=== PATIENT | male | born 1950 | race Caucasian/White ===

== ENCOUNTER → 2016-12-06 | Outpatient (CLI) | payer BC ==
[~2016-12-06] MED LIST: AMT100 PO; CHOL1TAB42 PO; CITA20TA9 PO; DILT360C23 PO; FENT25DI10 TD; HUMAN GROWTH HORMONE PO; OPTIRAY 320 IV PRN; OXYC1TAB3 PO; POLY335019 PO; PRLSR20 PO; SUMA100T16 PO; TEST5GEL TOP; TRIA37.5 PO; TYLOTC500 PO; ZCR40 PO; [UNRECOGNIZED DRUG - CODE] PO
--- NOTE | 2016-12-06 11:40 | DIAGNOSTIC IMAGING REPORT ---
CT SCAN OF THE BRAIN COMBO CLINICAL HISTORY: Chronic headache. Empty sella syndrome. COMPARISON STUDY: CT of the brain dated 06/18/2013. TECHNIQUE: Axial CT scan of the brain is performed from the vertex to the skull base before and following the IV administration of 93 cc of Optiray 320. Images reviewed in the axial, sagittal, an coronal planes. IV contrast was administered without complication. Automated dose control exposure was utilized. CT DOSE: 1375.95 mGy.cm FINDINGS: Brain parenchyma: The brain parenchyma is normal in appearance. There is no hemorrhage, mass effect, or evidence of acute territorial ischemia by CT criteria. Chandler-white matter is preserved. No enhancing mass lesion is suggested on the postcontrast images. There is CSF density noted within the sella turcica suggesting partially of the sella. No extra-axial fluid collection is seen. Ventricles, sulci, cisterns: Normal in configuration. Intracranial vasculature: The visualized intracranial vasculature at the skull base is normal in appearance. Calvarium: Unremarkable. Sinuses and mastoids: The visualized paranasal sinuses are clear. The mastoid air cells are well pneumatized. Orbits: The bony orbits are grossly intact. There are bilateral ocular lens implants. IMPRESSION: 1. No acute intracranial abnormality. 2. There is CSF density noted within the sella turcica suggesting partially empty sella, consistent with the reported clinical history. Electronically signed by: Dereck Araiza M.D. 12/06/2016 11:38 AM Dictated Date/Time: 12/06/2016 11:34 AM
== END | disposition home or self-care (01) ==
LOC: C.CTS 10:50
PROVIDERS: ATTEND Internal Medicine Endocrinology, Diabetes & Metabolism
DX: E23.6 Other disorders of pituitary gland (principal)

== ENCOUNTER → 2017-05-10 | Outpatient (CLI) | payer BC ==
[~2017-05-10] MED LIST changes: -OPTIRAY 320 IV PRN
== END | disposition home or self-care (01) ==
LOC: C.LABSPEC 16:11
PROVIDERS: ATTEND Dermatology
DX: L98.9 Disorder of the skin and subcutaneous tissue, unspecified (principal); R21 Rash and other nonspecific skin eruption

== ENCOUNTER → 2017-08-22 | Outpatient (CLI) | payer BC | END | disposition home or self-care (01) | LOC: C.LABSPEC 16:22 | PROVIDERS: ATTEND Physician Assistant | DX: L98.9 Disorder of the skin and subcutaneous tissue, unspecified (principal) ==

== ENCOUNTER → 2017-09-20 | Outpatient (CLI) | payer BC | END | disposition home or self-care (01) | LOC: C.LABSPEC 16:45 | PROVIDERS: ATTEND Physician Assistant | DX: L98.9 Disorder of the skin and subcutaneous tissue, unspecified (principal) ==

== ENCOUNTER → 2017-12-06 | Outpatient (CLI) | payer BC | END | disposition home or self-care (01) | LOC: C.LABSPEC 17:02 | PROVIDERS: ATTEND Physician Assistant | DX: L28.0 Lichen simplex chronicus (principal) ==